=== PATIENT | female | born 1975 | race African-American/Black ===

== ENCOUNTER 2024-12-25 17:17 | Emergency (ER) | payer MEDICAID ==
[~2024-12-25] VITALS: Ht 165.1 cm; Wt 105.0 kg
[2024-12-25 17:22] VITALS: TEMP 36.8; O2SAT 99
[2024-12-25 18:39] LABS: CLARITY URINE TURBID (CLEAR); COLOR URINE YELLOW (YELLOW); GLUCOSE URINE NEGATIVE (NEGATIVE); KETONES URINE TRACE (NEGATIVE); LEUKOCYTE ESTERASE URINE 1+ (NEGATIVE); NITRITE URINE NEGATIVE (NEGATIVE); OCCULT BLOOD URINE NEGATIVE (NEGATIVE); PH URINE 5.0 (4.5-8.0); PROTEIN URINE NEGATIVE (NEGATIVE); SPECIFIC GRAVITY URINE 1.031 (1.005-1.030); UROBILINOGEN URINE 0.2 E.U./dL (0.2-1.0)
[2024-12-25 18:55] LABS: AMORPHOUS SEDIMENT URINE 1+ /lpf; BACTERIA URINE 2+; RBC URINE 0-2 /hpf (0-2); SQUAMOUS EPITHELIAL CELL URINE FEW /lpf (RARE/1+)
[2024-12-25] MEDS ORDERED: CIPR-263 MT (19:23)
[2024-12-25 20:03] VITALS: BP 199/82; PULSE 67; RESP 16; O2SAT 100
== END 2024-12-25 20:04 | disposition home or self-care (01) ==
LOC: ER 17:29
DX: N12 Tubulo-interstitial nephritis, not specified as acute or chronic (principal); I10 Essential (primary) hypertension
CPT/HCPCS: 81003; 81025; 99283